=== PATIENT | female | born 1945 | race Caucasian/White ===

== ENCOUNTER → 2017-05-28 11:18 | Outpatient (CLI) | payer MEDICARE, SELFPAY ==
--- NOTE | 2017-05-28 11:53 | XR_ITS ---
XR knee LT 3V COMPARISON: None HISTORY: Suspected patellar subluxation TECHNIQUE: AP lateral and oblique views FINDINGS: There is mild joint space narrowing medially. There is spurring of the tibial spines. There is marked narrowing of the patellofemoral space. There are tubular serpiginous opacities in the soft tissues of the lower thigh and upper leg most likely resenting very prominent venous varicosities and suggest clinical correlation. There is no obvious effusion. IMPRESSION: Moderate degenerative change of the knee, probable diffuse venous varicosities
== END ==
PROVIDERS: PCP Internal Medicine Adolescent Medicine; Visit Provider Internal Medicine Adolescent Medicine
DX: S83.012A Lateral subluxation of left patella, initial encounter (principal)
CPT/HCPCS: 73562

== ENCOUNTER → 2017-06-10 13:00 | Outpatient (CLI) | payer MEDICARE, SELFPAY ==
--- NOTE | 2017-06-10 13:03 | XR_ITS ---
XR DEXA axial skeleton HISTORY: ITS.REASON: POST MENOPAUSAL ORDERING PHYSICIAN: Terell Haynes MD PATIENT AGE: 71 years COMPARISON: 05/28/2015 FINDINGS: The BMD measured at the left femoral neck is 0.749 g/cm squared with a T score of -2.1 . This is considered Osteopenic according to the World Health Organization criteria. Fracture risk is moderate. Treatment is advised. L1 L4 density has a T score of -1.2. The L-spine density has increased by 7% and the mean density of the hips as decreased by 2% compared to the previous exam. IMPRESSION: Osteopenia with moderate fracture risk. Recommend follow-up May 2019
== END ==
PROVIDERS: PCP Internal Medicine Adolescent Medicine; Visit Provider Internal Medicine Adolescent Medicine
DX: Z13.820 Encounter for screening for osteoporosis (principal); Z78.0 Asymptomatic menopausal state
CPT/HCPCS: 77080

== ENCOUNTER → 2018-07-05 09:56 | Outpatient (CLI) | payer MEDICARE, SELFPAY ==
--- NOTE | 2018-07-05 09:59 | MM_ITS ---
MM Dig SC mamm unilat LT CAD CAD Screening INDICATION: Screening for breast cancer ORDERING PHYSICIAN: Terell Haynes MD PATIENT AGE: 72 years COMPARISON: 07/05/2018, 02/11/2016, 02/05/2015 TECHNIQUE: Standard CC and MLO images were obtained. R2 CAD reviewed. FINDINGS: There is average fibroglandular tissue. There has been a prior right mastectomy. Biopsy clips are present in the periareolar region superiorly and in the deep central portion of the left breast at 6:00. Asymmetric areas of fibroglandular tissue present in the retroareolar region similar to the previous exams. No malignant appearing mass or malignant microcalcification is evident. IMPRESSION: Benign findings, no evidence of malignancy. Prior right mastectomy. BI-RADS Category: 2 Benign Finding(s) RECOMMENDED FOLLOW-UP: 1YR - 1 YEAR FOLLOW-UP (A letter has been sent to the patient regarding results of the study.)
== END ==
PROVIDERS: PCP Internal Medicine Adolescent Medicine; Visit Provider Internal Medicine Adolescent Medicine
DX: Z12.31 Encounter for screening mammogram for malignant neoplasm of breast (principal)
CPT/HCPCS: 77067

== ENCOUNTER → 2019-01-06 14:08 | Outpatient (CLI) | payer SELFPAY ==
--- NOTE | 2019-01-06 14:32 | CT_ITS ---
PROCEDURE: CT HEART W CALCIUM SCORE CLINICAL HISTORY: SCREENING COMPARISON: No exams were available for comparison TECHNIQUE: Axial images obtained with sagittal and coronal reformats. All CT scans at the facility use one or more dose reduction, viz: automated exposure control, ma/kV adjustment per patient size (including targeted exams where dose is matched to indication, i.e. head), or iterative reconstruction technique. FINDINGS: The coronary artery calcium score is 0. No identifiable atherosclerotic plaque with very low cardiovascular disease risk. Incidental findings include some minimal calcification along the inferior aspect of the atrioventricular junction on the left. Multiple hypodense liver lesions are present largest in the left hepatic lobe at 3.7 cm consistent with hepatic cyst IMPRESSION: No identifiable calcified atherosclerotic plaque with very low cardiovascular disease risk Hepatic cysts Nonspecific calcification along the posterior and inferior aspect of the left ventricle at the atrioventricular groove Dictated by: Ayden Becerril MD 01/06/2019 16:35 Electronically signed by Ayden Becerril MD in [place] 01/06/2019 16:35
== END ==
PROVIDERS: PCP Internal Medicine Adolescent Medicine; Visit Provider Internal Medicine Cardiovascular Disease
DX: Z13.6 Encounter for screening for cardiovascular disorders (principal)
CPT/HCPCS: 75571

== ENCOUNTER → 2019-04-12 13:09 | Outpatient (CLI) | payer MEDICARE, SELFPAY ==
--- NOTE | 2019-04-12 13:16 | XR_ITS ---
PROCEDURE: XR FEMUR RT 2V CLINICAL INDICATION: RT HIP PAIN,RT THIGH PAIN COMPARISON: No exams were available for comparison FINDINGS: No fracture or dislocation. No lytic or blastic change. There is normal mineralization. The joint spaces are well-preserved. There is marginal spurring off of the lateral femoral condyle. Otherwise, no significant degenerative/arthritic changes. No erosive changes evident. Other findings:None. IMPRESSION: No acute findings. Mild lateral compartment osteoarthritis. Dictated by: Anuj Kenendy 04/12/2019 14:45 Electronically signed by Anuj Kennedy in [place] 04/12/2019 14:45
--- NOTE | 2019-04-12 13:16 | XR_ITS ---
PROCEDURE: XR HIP RT 2-3V W/PELVIS CLINICAL INDICATION: RT HIP PAIN,RT THIGH PAIN COMPARISON: BONE3 BONE DENSITOMETRY(HIP:LT SPINE from 05/28/2015 FINDINGS: No fracture or dislocation is evident. There is slight degenerative loss of the lateral left hip cartilaginous joint space. There is sclerosis at the symphysis pubis consistent with osteitis pubis greatest on the left. Unremarkable soft tissues. IMPRESSION: No acute findings. Mild degenerative findings. Dictated by: Anuj Kennedy 04/12/2019 14:43 Electronically signed by Anuj Kennedy in [facility] 04/12/2019 14:43
--- NOTE | 2019-04-12 13:16 | XR_ITS ---
PROCEDURE: XR SACROILIAC JOINT BI MIN 3V CLINICAL INDICATION: RT HIP PAIN,RT THIGH PAIN COMPARISON: No exams were available for comparison FINDINGS: There is mild sclerosis of the bilateral sacroiliac joints without ankylosis consistent with mild sacroiliitis. No acute fracture dislocation or destructive lesion is apparent. There is osteitis pubis. IMPRESSION: Mild bilateral sacroiliitis. Dictated by: Anuj Kennedy 04/12/2019 14:47 Electronically signed by Anuj Kennedy in [place] 04/12/2019 14:47
== END ==
PROVIDERS: PCP Internal Medicine Adolescent Medicine; Visit Provider Internal Medicine Adolescent Medicine
DX: M25.551 Pain in right hip (principal); M25.651 Stiffness of right hip, not elsewhere classified
CPT/HCPCS: 72202; 73502; 73552

== ENCOUNTER 2019-11-10 09:41 | Outpatient (RCR) | payer MEDICARE, SELFPAY ==
--- NOTE | 2019-11-10 11:25 | HMH.OTOPEV ---
OT Inpatient Evaluation Rehab OT Outpatient Eval Start: 11/10/19 10:49 Freq: Status: Active Protocol: Document 11/10/19 10:50 KORY (Rec: 11/10/19 11:25 KORY [id number]) Electronically Signed By Sara Sahu OT 11/10/19 10:50 Outpatient Therapy Subjective History Subjective History 74 year old female referred to OP OT services after having consistent pain in the right shoulder since Mar 2019. Patient stated being very active in the garden daily and notices increase pain in R shoulder after gardening in the a.m. Patient verbalize having consistent pain during movement from shoulder to elbow. Patient verbalize to have trigger fingers of middle and ring finger on right hand . Patient stated to recieve cortisone shot in R shoulder back in June 2019 however pain returned 2-3 weeks. 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 Type Sharp Symptoms Relieved By Heat Symptoms Aggravated By Physical Activity Prior Functional Limitations None Current Functional Limitations Reaching,Lifting Symptom Description Constant and Continuous Level of pain today (0-10) 0 Pain scale - at its best (0-10) 0 Pain scale - at its worst (0-10) 10 Shoulder/Elbow Eval Shoulder Objective Measurements Shoulder ROM Right Shoulder Abduction Active Range of 80 Motion (degrees) Shoulder Flexion Active Range of Motion 180 (degrees) Query Text: Shoulder External Rotation Active Range 80 of Motion (degrees) Shoulder Internal Rotation Active Range 60 of Motion (degrees) Shoulder MMT Shoulder Abduction Strength Grade 3+ Fair+ Shoulder Extension Strength Grade 3+ Fair+ Shoulder Flexion Strength Grade 3+ Fair+ Shoulder Horizontal Abduction Strength 3+ Fair+ Grade Shoulder Horizontal Adduction Strength 3+ Fair+ Grade Shoulder External Rotation Strength 3+ Fair+ Grade Shoulder Internal Rotation Strength 3+ Fair+ Grade Shoulder Special Tests impingement sign present shoulder exam right standard Shoulder Drop Arm Test Negative Right Shoulder Empty Can (Supraspinatus) Test Positive Right Shoulder Gisela
== END 2019-11-10 10:37 | disposition home or self-care (01) ==
LOC: OT 09:41
PROVIDERS: PCP Internal Medicine Adolescent Medicine; Visit Provider Internal Medicine Adolescent Medicine
DX: M79.601 Pain in right arm (principal)
CPT/HCPCS: 97014; 97033; 97110; 97165; G0283

== ENCOUNTER → 2020-01-05 09:48 | Outpatient (CLI) | payer MEDICARE, SELFPAY ==
--- NOTE | 2020-01-05 09:52 | MM_ITS ---
PROCEDURE: MM DIG SC MAMM UNILAT LT CAD Digital Breast Tomosynthesis Included CLINICAL INDICATION: SCREENING There has been a previous right mastectomy for malignancy. There has been previous biopsies left breast for benign disease. COMPARISON: MG DMSUL DIG MAMM-SCREEN UNI-LT W/CAD from 02/11/2016 MG DMSUL DIG MAMM-SCREEN UNI-LT W/CAD from 02/12/2017 MG SCUNILT MM Dig SC mamm unilat LT CAD from 07/05/2018 TECHNIQUE: Standard CC and MLO images and 3D Tomosynthesis was obtained. R2 CAD reviewed. FINDINGS: Moderate fibroglandular densities are seen in the central portion and subareolar region. There are 2 biopsy clips noted. There is a mole marker inner quadrant. There is no new or suspicious lesion and no suspicious microcalcifications. There is a stable small node in the axilla. IMPRESSION: Fibrofatty parenchyma with no suspicious lesions seen BI-RAD Category: 2 Benign Finding(s) FOLLOW-UP: 1YR 1 Year Follow-up (A letter has been sent to the patient regarding results of the study.) Dictated by: Dr. Trevor Baker MD 01/09/2020 08:22 Dr. Trevor Baker MD in [place] 01/09/2020 08:22
== END ==
PROVIDERS: PCP Internal Medicine Adolescent Medicine; Visit Provider Internal Medicine Adolescent Medicine
DX: Z12.31 Encounter for screening mammogram for malignant neoplasm of breast (principal)
CPT/HCPCS: 77063; 77067

== ENCOUNTER → 2020-04-29 13:51 | Outpatient (CLI) | payer MEDICARE, SELFPAY ==
--- NOTE | 2020-04-29 | CA_ITS ---
APPROVED REPORT Bilateral Lower Extremity Venous Study for Project Specialist: CK RCS, RVS Indications REDNESS AND PAIN POSTERIOR MEDIAL LOWER THIGH, PREVIOUS HX-DVT, PAINFUL VARICOSITIES AND VEIN STRIPPING Medications Aspirin Findings Left superficial thrombus at area of pain, 5.7cm Hya's cyst in left pop fossa. Negative for DVT of the left lower extremity. Conclusion Left superficial thrombus at area of pain, 5.7cm Hay's cyst in left pop fossa. Negative for DVT of the left lower extremity. Electronically signed by : Ayden Becerril MD 04/29/2020 16:08:05
== END ==
PROVIDERS: PCP Internal Medicine Adolescent Medicine; Visit Provider Internal Medicine Adolescent Medicine
DX: M79.605 Pain in left leg (principal); R60.0 Localized edema
CPT/HCPCS: 93971

== ENCOUNTER 2020-06-25 14:30 | Outpatient (RCR) | payer MEDICARE, SELFPAY ==
--- NOTE | 2020-05-13 13:58 | HMH.PTOPWND ---
Rehab Outpt Wound Evaluation Rehab OP Wound Evaluation Start: 05/13/20 13:45 Freq: Status: Active Protocol: Document 05/13/20 13:45 FREEMAN (Rec: 05/13/20 13:58 PHORJUSTINA [id number]) Electronically Signed By Jaron Renner, PT 05/13/20 13:45 Subjective/History History History Pt is 74 yowf who presents with B LE edema, worse on L LE for many years due to CVI. She has hx of L LE DVT, PE and is currently having increased pain from superficial bloot clot in the L posterior medial thigh. She reports increased edema when sedentary, but she prefers to stay active as much as possible. She reports hx of MARCELA, otherwise no more significant PMH. Subjective Subjective 2/4 tenderness to palpation in B LE gaitor area and 3/4 over the post L thigh clot. 1/10 pain currently, 9/10 pain at worst. Lymphedema Eval Classification of Lymphedema Secondary Lymphedema Yes: CVI Stemmer's sign Stemmer's Sign no Stage of Lymphedema Lymphedema stages Stage II (Pitting edema, increased fibrosis w/ decreased pitting) Skin Changes Dry Skin Yes Redness Yes Discoloration of Skin Yes Other Changes Yes Pain Scale Pain Scale (0-10) 1 Affected Extremities Areas Affected by Lymphedema/Edema Right Lower Extremity,Left Lower Extremity Manual Lymphatic Drainage Treatment Area MLD Treatment Area Right Lower Extremity,Left Lower Extremity Wound Problems/Impairments Impairments Problems/Impairmments Palpation Tenderness,Impaired Recreational Activities, Increased Edema,Lymphedema Present,Subjective C/O Pain, Impaired Self Care/Self Management Prognosis Rehab Potential Good Clinical Impression Consistent with Diagnosis Yes Short Term Goals Number of Weeks 4 Decreased Palpation Tenderness Yes: 1/4 Increase Ability to Walk Yes Decrease Edema Yes Patient to Understand Lymphedema Yes Treatment and Exercises Respite Care Provider Goals Number of Weeks
== END 2020-06-25 14:35 | disposition home or self-care (01) ==
LOC: PT 14:30
PROVIDERS: PCP Internal Medicine Adolescent Medicine; Visit Provider Internal Medicine Adolescent Medicine
DX: R60.0 Localized edema (principal); M79.605 Pain in left leg
CPT/HCPCS: 97140; 97162; 97760

== ENCOUNTER → 2020-10-02 08:37 | Outpatient (CLI) | payer MEDICARE, SELFPAY ==
[2020-10-02 09:17] LABS: Basophils # 0.1 K/mm3 (0-0.2); Basophils % 0.9 % (0.1-2.0); Eosinophils # 0.2 K/mm3 (0.0-0.4); Eosinophils % 4.3 % (0.1-12.0); Hematocrit 44.6 % (37.0-47.0); Hemoglobin 14.8 g/dL (12.2-16.2); Lymphocytes # 1.7 K/mm3 (0.7-4.5); Lymphocytes % 32.6 % (10-50); Mean Corpuscular HGB Conc 33.2 g/dL (31.8-35.4); Mean Corpuscular Hemoglobin 32.5 pg (27.0-31.2); Mean Corpuscular Volume 97.8 fl (81-99); Monocytes # 0.3 K/mm3 (0.1-1.0); Monocytes % 5.5 % (1.7-9.3); Neutrophils # 2.9 K/mm3 (1.8-7.8); Neutrophils % 56.7 % (37.0-80.0); Platelet Count 240 K/mm3 (142-424); Red Blood Count 4.56 M/mm3 (4.20-5.40); Red Cell Distribution Width 13.6 % (11.5-17.5); White Blood Count 5.1 K/mm3 (4.8-10.8)
[2020-10-02 09:35] LABS: Alanine Aminotransferase 14 U/L (12-78); Albumin Level 4.6 g/dl (3.5-5.0); Albumin/Globulin Ratio 1.8 (1.1-1.8); Alkaline Phosphatase 64 U/L (38-126); Anion Gap 12.6 mEq/L (5-15); Aspartate Amino Transferase 23 U/L (14-36); Bilirubin,Total 0.9 mg/dl (0.2-1.3); Blood Urea Nitrogen 10 mg/dl (7-17); Calcium 9.1 mg/dl (8.4-10.2); Carbon Dioxide 28 mmol/L (22.0-30.0); Chloride 102 mmol/L (98-107); Chol/HDL Ratio 2.4 (1-3.5); Cholesterol 214 mg/dl (140-200); Estimated Glomerular Filt Rate 82 ml/min (>60); GFR (African American) 99 ML/MIN (>60); Globulin 2.5 g/dL (1.3-3.2); Glucose 91 mg/dl (74-100); HDL Cholesterol 90 mg/dl (40-60); Potassium 4.6 mmoL/L (3.5-5.1); Sodium 138 mmol/L (136-145); Total Protein,Serum 7.1 g/dl (6.3-8.2); Triglycerides 52 mg/dl (30-150); VLDL Cholesterol 10 mg/dL (0-40)
[2020-10-02 09:46] LABS: Direct LDL Cholesterol 103.48 mg/dL (100-129)
[2020-10-02 09:53] LABS: 25-OH Vitamin D, Total 29.4 ng/mL (30-100)
[2020-10-02 10:24] LABS: Vitamin B12 582 pg/mL (239-931)
== END ==
PROVIDERS: Visit Provider Internal Medicine Adolescent Medicine
DX: I89.0 Lymphedema, not elsewhere classified (principal); E78.5 Hyperlipidemia, unspecified; E55.9 Vitamin D deficiency, unspecified; D75.89 Other specified diseases of blood and blood-forming organs
CPT/HCPCS: 36415; 80053; 80061; 82306; 82607; 85025

== ENCOUNTER → 2021-01-09 09:21 | Outpatient (CLI) | payer MEDICARE, SELFPAY ==
--- NOTE | 2021-01-09 09:24 | MM_ITS ---
PROCEDURE: MM DIG SC MAMM UNILAT LT CAD Digital Breast Tomosynthesis Included CLINICAL INDICATION: SCREENING lt , h/o rt breast cancer with masectomy COMPARISON: MG DMSUL DIG MAMM-SCREEN UNI-LT W/CAD from 02/12/2017 MG SCUNILT MM Dig SC mamm unilat LT CAD from 07/05/2018 MG MM DIG SC MAMM UNILAT LT CAD from 01/05/2020 TECHNIQUE: Standard CC and MLO images and 3D Tomosynthesis was obtained. R2 CAD reviewed. FINDINGS: Status post right mastectomy. There are scattered areas of fibroglandular density Two biopsy clips are present as before. Benign-appearing calcifications. No malignant appearing mass or malignant-appearing microcalcification. IMPRESSION: Benign findings. BI-RAD Category: 2 Benign Finding FOLLOW-UP: 1 YR 1 Year Follow-up (A letter has been sent to the patient regarding results of the study.) Dictated by: Ayden Becerril MD 01/10/2021 17:38 Ayden Becerril MD in [place] 01/10/2021 17:38
--- NOTE | 2021-01-09 09:24 | XR_ITS ---
PROCEDURE: XR DEXA AXIAL SKELETON CLINICAL HISTORY: OSTEOPENIA COMPARISON: CR DEXAAX XR DEXA axial skeleton from 06/10/2017 FINDINGS: The right hip BMD is 0.61 with a T-score of -2.1. The left hip BMD is 0.647 with a T-score of -1.8. The lumbar spine BMD is 0.874 with a T-score of -1.6. IMPRESSION: This patient is considered osteopenic according to the World Health Organization criteria. Bone density is between 10 and 25 percent below young normal. Fracture risk is moderate. Treatment is advised. Based on these results a follow-up exam is recommended in 2 year. Dictated by: Ayden Becerril MD 01/09/2021 14:12 Ayden Becerril MD in [place] 01/09/2021 14:12
== END ==
PROVIDERS: PCP Internal Medicine Adolescent Medicine; Visit Provider Internal Medicine Adolescent Medicine
DX: Z12.31 Encounter for screening mammogram for malignant neoplasm of breast (principal); M85.89 Other specified disorders of bone density and structure, multiple sites; Z85.3 Personal history of malignant neoplasm of breast
CPT/HCPCS: 77063; 77067; 77080

== ENCOUNTER → 2021-12-03 08:47 | Outpatient (CLI) | payer MEDICARE, SELFPAY ==
--- NOTE | 2021-12-03 08:58 | XR_ITS ---
FINAL REPORT CLINICAL HISTORY: knee pain COMPARISON: May 28, 2017 FINDINGS: LEFT KNEE Three views of the left knee were obtained. There is no acute fracture or dislocation. Visualized joint spaces are normally aligned. There are moderate degenerative changes which are stable. There is no joint effusion. There are bilateral radiodensities which likely represent venous varicosities. IMPRESSION: Moderate degenerative changes with no acute bony abnormality. Stable from prior exam. Reviewed, Interpreted and Dictated by Kiran Chiang III, MD Transcribed by Paty Lopez Authenticated and [facility]
--- NOTE | 2021-12-03 08:58 | XR_ITS ---
FINAL REPORT CLINICAL HISTORY: shoulder pain FINDINGS: RIGHT SHOULDER 3 views of the right shoulder were obtained. There is no acute fracture or dislocation. There is mild degenerative change of the acromioclavicular joint. There is a small sclerotic focus in the humeral head of uncertain etiology but could represent an enchondroma. There is no soft tissue abnormality. IMPRESSION: Mild degenerative change of the acromioclavicular joint. Small sclerotic focus in the humeral head of uncertain etiology, could represent an enchondroma. Reviewed, Interpreted and Dictated by Kiran Chiang III, MD Transcribed by Paty Lopez Authenticated and . [facility]
--- NOTE | 2021-12-03 08:58 | XR_ITS ---
FINAL REPORT CLINICAL HISTORY: knee pain FINDINGS: RIGHT KNEE Three views of the right knee reveal no evidence of fracture or dislocation. The bony alignment is normal. There are mild and moderate degenerative changes which are greatest at the lateral compartment. There is no evidence of joint effusion. There are presumed venous varicosities laterally. IMPRESSION: Mild and moderate degenerative change with no acute bony abnormality. Reviewed, Interpreted and Dictated by Kiran Chiang III, MD Transcribed by Paty Lopez Authenticated and [facility]
== END ==
PROVIDERS: PCP Internal Medicine Adolescent Medicine; Visit Provider Orthopaedic Surgery
DX: M25.561 Pain in right knee; M25.562 Pain in left knee; M25.511 Pain in right shoulder
CPT/HCPCS: 73030; 73562

== ENCOUNTER 2022-01-21 11:00 | Outpatient (RCR) | payer MEDICARE, SELFPAY ==
--- NOTE | 2021-12-30 11:45 | HMH.PTOPEV ---
PT Outpatient Evaluation Rehab PT Outpatient Evaluation Start: 12/30/21 11:06 Freq: Status: Active Protocol: Document 12/30/21 11:25 KAITLIN (Rec: 12/30/21 11:45 KAITLIN [id number]) E-signed By Tray Chin, PT Outpatient Therapy Subjective History Subjective History Pt reports h/o chronic bilateral knee pain and right shoulder pain for 12-18 months . Pt reports right shoulder pain 'really gives me trouble when I reach back', and reports bilateral knee L<R with stairs and squatting. Pt w/recent xrays of aforementioned areas, right shoulder showing AC jt OA, right knee mild-mod OA, and left knee mod. OA. Pt reports recent right shoulder cortizone injection provided ' no relief'. Chief Complaint Pain,Stiff,Gives out/Unstable, Weakness Symptom Type Ache,Sharp,Dull,Stabbing Symptoms Relieved By Rest/Positioning,Heat,Ice,OTC Meds Symptoms Aggravated By Physical Activity Prior Functional Limitations Reaching,Lifting,Housework, Squatting,Stairs Current Functional Limitations Reaching,Lifting,Housework, Squatting,Stairs Symptom Description Constant but Variable Level of pain today (0-10) 6 Pain scale - at its best (0-10) 3 Pain scale - at its worst (0-10) 10 Shoulder/Elbow Eval Shoulder Objective Measurements Palpation Tenderness tenderness over the bicipital tendon right shoulder exam standard Shoulder Palpation Findings Tenderness Shoulder Palpation Overall Comment 3/4 AC JT, SUPRA- INSERTION, BICEP TENDON Shoulder ROM Right Shoulder Abduction Active Range of 0-105 Motion (degrees) Shoulder Flexion Active Range of Motion 0-140 (degrees) Query Text: Shoulder External Rotation Passive Range 0-80 of Motion (degrees) Shoulder Extension Active Range of 0-10 Motion (degrees) Shoulder MMT Middle Trapezius Strength Grade 3- Fair- Shoulder Abduction Strength Grade 4- Good- Shoulder Flexion Strength Grade 4 Good Shoulder External Rotation Strength 4- Good- Grade Shoulder Internal Rotation Strength 4 Good Grade Shoulder Special Tests Shoulder Drop Ar
== END 2022-01-21 11:05 | disposition home or self-care (01) ==
LOC: PT 11:00
PROVIDERS: PCP Internal Medicine Adolescent Medicine; Visit Provider Orthopaedic Surgery
DX: M25.562 Pain in left knee (principal); M25.561 Pain in right knee; M25.511 Pain in right shoulder
CPT/HCPCS: 97010; 97014; 97110; 97163; G0283

== ENCOUNTER → 2022-01-26 12:39 | Outpatient (CLI) | payer MEDICARE, SELFPAY ==
--- NOTE | 2022-01-26 12:57 | CA_ITS ---
FINAL REPORT TECHNIQUE: Ultrasound images of the deep venous system were obtained from the left groin to the calf veins. CLINICAL HISTORY: PAIN PROX LATERAL CALF IN AREA OF VARICOSE VEINS,HX DVT FINDINGS: The deep venous system is normally compressible. Normal flow is identified. There is superficial thrombophlebitis in the area of the left lateral proximal calf. There is a 5.8 cm cystic lesion in the popliteal fossa consistent with Hay's cyst. IMPRESSION: No evidence of left lower extremity DVT. Superficial thrombophlebitis. Reviewed, Interpreted and Dictated by Orlin Ham MD Transcribed by Bernie Fish Authenticated and [facility]
== END ==
PROVIDERS: PCP Internal Medicine Adolescent Medicine; Visit Provider Internal Medicine Adolescent Medicine
DX: M79.605 Pain in left leg (principal); R60.1 Generalized edema
CPT/HCPCS: 93971

== ENCOUNTER → 2022-05-12 13:29 | Outpatient (CLI) | payer MEDICARE, SELFPAY ==
--- NOTE | 2022-05-12 13:31 | MM_ITS ---
PROCEDURE INFORMATION: Exam: MG Left Screening 3D Mammography Exam date and time: 05/12/2022 1:31 PM Age: 76 years old Clinical indication: Screening mammogram. Personal history of right breast cancer; Mastectomy TECHNIQUE: Imaging protocol: Left Screening tomosynthesis and 2D mammography including computer-aided detection (CAD) when performed. COMPARISON: 1. MG MM DIG SC MAMM UNILAT LT CAD 01/09/2021 9:45 AM 2. MG MM DIG SC MAMM UNILAT LT CAD 01/05/2020 10:04 AM 3. MG SCUNILT MM Dig SC mamm unilat LT CAD 07/05/2018 10:10 AM 4. MG DMSUL DIG MAMM-SCREEN UNI-LT W/CAD 02/12/2017 9:30 AM FINDINGS: MAMMOGRAPHY: Breast composition: The breast is heterogeneously dense, which may obscure small masses. Mass: None. Architectural distortion: No new or suspicious architectural distortion. Calcifications: No new or suspicious calcifications are present Asymmetric density: No new or suspicious asymmetric density is present Skin thickening: None. Axillary adenopathy: None. IMPRESSION: No mammographic evidence of malignancy. Recommend annual screening mammography unless otherwise clinically indicated. ASSESSMENT: BI-RADS category 1: Negative
== END ==
LOC: RAD 13:29
PROVIDERS: PCP Internal Medicine Adolescent Medicine; Visit Provider Internal Medicine Adolescent Medicine
DX: Z12.31 Encounter for screening mammogram for malignant neoplasm of breast (principal)
CPT/HCPCS: 77063; 77067

== ENCOUNTER → 2022-09-07 13:13 | Outpatient (CLI) | payer MEDICARE, SELFPAY | PROVIDERS: PCP Internal Medicine Adolescent Medicine; Visit Provider Internal Medicine Adolescent Medicine | DX: R01.1 Cardiac murmur, unspecified (principal); I35.8 Other nonrheumatic aortic valve disorders | CPT/HCPCS: 93306 ==

== ENCOUNTER → 2023-01-25 13:41 | Outpatient (CLI) | payer MEDICARE, SELFPAY ==
--- NOTE | 2023-01-25 13:51 | XR_ITS ---
FINAL REPORT CLINICAL HISTORY: B/L foot pain COMPARISON: None FINDINGS: AP, oblique and lateral views of the left foot were obtained. There is no prior exam for comparison. There is no acute fracture or dislocation. Osteopenia is present. There is mild multijoint degenerative change present, particularly at the first MTP joint. Soft tissues are normal. IMPRESSION: No acute osseous abnormality of the left foot. Mild multijoint degenerative change, particularly the first MTP joint. Reviewed, Interpreted and Dictated by Aida Gibson MD Transcribed by Elenita Sherman Authenticated and [facility]
--- NOTE | 2023-01-25 13:51 | XR_ITS ---
FINAL REPORT CLINICAL HISTORY: B/L foot pain COMPARISON: None FINDINGS: AP, oblique and lateral views of the right foot were obtained. There is no prior exam for comparison. There is no acute fracture or dislocation. Osteopenia is present, with mild multijoint degenerative change particularly in the midfoot. Soft tissues are normal. IMPRESSION: No acute osseous abnormality of the right foot. Osteopenia with mild multijoint degenerative change, particularly in the midfoot. Reviewed, Interpreted and Dictated by Aida Gibson MD Transcribed by Elenita Sherman Authenticated and [facility]
== END ==
PROVIDERS: PCP Internal Medicine Adolescent Medicine; Visit Provider Podiatrist
DX: M79.671 Pain in right foot (principal); M79.672 Pain in left foot
CPT/HCPCS: 73630

== ENCOUNTER 2023-05-20 13:12 | Outpatient (CLI) | payer MEDICARE, SELFPAY ==
--- NOTE | 2023-05-20 13:16 | MM_ITS ---
PROCEDURE INFORMATION: Exam: MG Left Screening 3D Mammography Exam date and time: 05/20/2023 1:08 PM Age: 77 years old Clinical indication: Screening examination; h/o RT breast cancer treated with mastectomy TECHNIQUE: Imaging protocol: Left Screening tomosynthesis and 2D mammography including computer-aided detection (CAD) when performed. COMPARISON: 1. MG MM DIG SC MAMM UNILAT LT CAD 05/12/2022 1:31 PM 2. MG MM DIG SC MAMM UNILAT LT CAD 01/09/2021 9:45 AM FINDINGS: MAMMOGRAPHY: Breast composition: There are scattered areas of fibroglandular density. Mass: None. Architectural distortion: None. Calcifications: No suspicious calcifications. Asymmetric density: None. Skin thickening: None. Axillary adenopathy: None. Other findings: The patient is status post right mastectomy IMPRESSION: 1. No mammographic evidence of malignancy. Annual screening is recommended unless otherwise clinically indicated. 2. In women diagnosed with breast cancer before age 50 or with personal histories of breast cancer and dense breasts, the [employer] recommends annual supplemental MRI in addition to yearly mammography. Alternative supplemental studies may include breast sonography or contrast enhanced mammography. Please be aware that your insurance company will determine whether they will cover the cost of such screening, despite the recommendation of your doctors and the [employer]. It is your responsibility to determine your insurance benefits. ASSESSMENT: BI-RADS Category 1: Negative
== END 2023-05-20 23:59 ==
LOC: RAD 13:13
PROVIDERS: PCP Internal Medicine Adolescent Medicine; Visit Provider Internal Medicine Adolescent Medicine
DX: Z12.31 Encounter for screening mammogram for malignant neoplasm of breast (principal); Z85.3 Personal history of malignant neoplasm of breast
CPT/HCPCS: 77063; 77067

== ENCOUNTER 2024-11-22 10:36 | Outpatient (RCR) | payer MEDICARE, SELFPAY | END 2024-11-22 23:59 | disposition home or self-care (01) | LOC: OT 10:36 | PROVIDERS: PCP Internal Medicine Adolescent Medicine; Visit Provider Internal Medicine Adolescent Medicine | DX: M25.511 Pain in right shoulder (principal) | CPT/HCPCS: 97165 ==

== ENCOUNTER 2024-11-27 13:45 | Outpatient (CLI) | payer MEDICARE, SELFPAY ==
--- OUTSIDE RECORDS SUMMARY | 2024-11-01 05:45 | XMS_ITS ---
Author Organization 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 Name Role Phone Terell Haynes Primary Care Provider Allergies Allergen (clinical drug ingredient) Drug/Non Drug Allergy documented on EMR Reaction Allergy Type Onset Date Status MOBIC (uncoded) stomach upset Allergy Active WASPS (uncoded) swelling Allergy Acti ve lidocaine Lidocaine itching Drug Allergy Active Ethyl Chloride itching Drug Allergy Ac tive Aleve stomach upset Drug Allergy Act salbador naproxen Naprosyn stomach upset Drug Allergy Act salbador codeine Codeine lip swelling Drug Allergy Acti ve REASON FOR VISIT 3 Month follow up, [employer] PAF due Medications Medication SIG (Take, Route, Frequency, Duration) Notes Start Date End Date Status Vitamin D3 125 MCG 1 CAP(S) ORALLY twic e a day 1000 IU Active Tylenol Extra Strength 500 MG 2 tab(s) orally every 6 hours prn Active Folic Acid 800 MCG 1 tab(s) orally once a day; Duration: 30 day(s) Active HYDROcodone-Acetaminophen 5-325 MG 1 tab(s) orally every 6 hours and at bedtie if needed; Duration: 30 days 10/12/2024 Active Theratears - 1 GTT IN EACH EYE ON CE A DAY AND PRN Active Vitamin C 500 MG 1 tab(s) orally once a day; Duration: 30 day(s) Active Biotin 1000 MCG 1 tab(s) orally once a day Active B-12 1000 MCG 1 tab(s) orally once a day Active Immunizations Vaccine Route Administration Date Status Comme nts Fluzone High Dose IM Intramuscular 11/01/2024 Administered Problems Problem Type SNOMED Code ICD Code Onset Dates Problem Status W/U Status Risk Notes Problem Osteopenia (387348997) Osteopenia of multiple sites (M85.89) Active confirmed Problem Basal cell carcinoma (BCC) of skin of left upper extremity including shoulder (C44.619) Active confirmed Problem History of left knee replacement ([id number] 4) History of left knee replacement (Z96.652) Active confirmed Vital Signs Temperature 97.7 degrees Fahrenheit 11/02/19 25 Blood pressure systolic 134 mm Hg 11/02/19 25 Blood pressure diastolic 88 mm Hg 025 Heart Rate 80 /min 11/01/2024 Height 5 ft 6.75 in in 11/01/2024 Weight 187 lbs 11/01/2024 BMI 29.5 kg/m2 11/01/2024 Encounters Encounter Location Date Provider Diagnosis [facility] [address] [facility] [address] [place] [address] 11/01/2024 Terell Haynes Osteopenia of multip le sites M85.89 ; Basal cell carcinoma (BCC) of skin of left upper extremity including shoulder C44.619 ; Venous stasis I87.8 ; Encounter for immunization Z23 ; Immunization(s) administered Z23 ; History of left knee replacement Z96.652 and Routine medical exam Z00.00 Assessments Encounter Date Diagnosis (ICD Code) Assessment Notes Treatment Notes Treatment Clinical Notes Section Notes 11/01/2024 Osteopenia of multiple sites (ICD-10 - M85.89) Did have osteopenia at last DEXA in 2020 with lowest T-score of -2.1 in R hip. Will plan for repeat today. Continue taking Vit-d and Calcium. WIll discuss result at next visit. 11/01/2024 Basal cell carcinoma (BCC) of skin of left upper extremity including shoulder (ICD-10 - C44.619) Continue following with dermatology 11/01/2024 Venous stasis (ICD-10 - I87.8) Bilateral Venous stasis, however, L leg edema > R. L leg is red and has pitting edema. US of leg leg in september was negative for DVT, but did show fluid collection behind L knee ( Bakers cyst vs hematoma). Did encourage continued activity, leg elevation, and continued SCD use. Did offer occasional Lasix use for leg swelling but she denied. Can repeat US of LLE at next visit in 3 months to see if fluid collection is changed if it still bothers the patient. 11/01/2024 Encounter for immunization (ICD-10 - Z23) Will give quadrivalent flu shot today 11/01/2024 Immunization(s) administered (ICD-10 - Z23) 11/01/2024 History of left knee replacement (ICD-10 - Z96.652) Had L knee replacment on 08/28/24. She has taken low dose ASA since then. Told her she can stop taking ASA since it has been 2 months post surgery. 11/01/2024 Routine medical exam (ICD-10 - Z00.00) In regards to [employer] practitioner assessment form, patient is doing well. Up-to-date with vaccines, up-to-date with cancer screening. DEXA ordered. No falls. is healthcare surrogate. / word recall at Medicare annual wellness visit. Not diabetic. Plan Of Treatment Treatment Notes Assessment Notes Osteopenia of multiple sites Did have os teopenia at last DEXA in 2020 with lowest T-score of -2.1 in R hip. Will plan for repeat today. Continue taking Vit-d and Calcium. WIll discuss result at next visit. Basal cell carcinoma (BCC) o f skin of left upper extremity including shoulder Continue following with dermatology Venous stasis Bilateral Venous sta sis, however, L leg edema > R. L leg is red and has pitting edema. US of leg leg in september was negative for DVT, but did show fluid collection behind L knee ( Bakers cyst vs hematoma). Did encourage continued activity, leg elevation, and continued SCD use. Did offer occasional Lasix use for leg swelling but she denied. Can repeat US of LLE at next visit in 3 months to see if fluid collection is changed if it still bothers the patient. Encounter for immunization Will give anuradha drivalent flu shot today History of left knee replacement Had L k nee replacment on 08/28/24. She has taken low dose ASA since then. Told her she can stop taking ASA since it has been 2 months post surgery. Routine medical exam In regards to [employer] practitioner assessment form, patient is doing well. Up-to-date with vaccines, up-to-date with cancer screening. DEXA ordered. No falls. is healthcare surrogate. 05/22 word recall at Medicare annual wellness visit. Not diabetic. Pending Test Test Name Order Date DEXA Hip and Spine - Diagnostic 11/02/19 Next Appt Details Follow Up: prn, Reason: Provider Name:Terell Haynes, 01/31/2025 10:30:00 AM, [address], [address], [place], [address], Progress Notes * Allyssa ROBERTSDOB: [birth year] (79 yo F)Acc No.[id number]:11/01/2024 Progress Notes Patient: Allyssa GUALLPA Provider: Sofiya Haynes MD :1945 A ge:79 Y S ex:Female Date:11/01/2024 Address:[address] [place], [place] [id number] Subjective: * Chief Complaints: * 1 . 3 Month follow up. 2. Nicolasa HAMM due. * HPI: g en: F/u of med probs.. due for nicolasa hamm Went to see embroidery operator, they removed a basal cell carcinoma. She is not sure if they got clean margins, but they want go back in 11/21 and go deeper . Recently had a knee replacement on August 28. Wants to know if she can come off baby aspirin. Wants to know if she can come off. Found Bakers cyst after the knee surgery. Cannot wear compression socks. Has pain all over the Left leg, no pain in popliteal fossa. * Medical History: o varian mass, s/p MARCELA/BSO 05/27, DVT 1998 , 2007, PE 1976, Breast CA , s/p R mastectomy, Superficial thrombophlebitis, Miscarriage in 7th month, Tubal , Blood transfusion, Frac left distal fibula, Arthritis - on Opiate tx... appropriate UDS 01/08, Normal colonoscopy summer 2014, B12 vitamin deficiency, osteopenia on DEXA scanning in April 2015 - unchanged in 05/2017 - slightly worse 01/09 - treatment recommended, Plantar Fascaiitis, Normal mammogram 07/08 and 12/2019 and 12/2020 and 04/2022 and 06/12, CT cardiac screening with no visible calcifications 01/07, DVT, Hyperlipemia, idiopathic familial, Basal cell carcinoma. * Surgical History: h ysterectomy , right mastectomy , 3 abd hernia repair , tubal ligation , breast reconstruction , DVT , tubal preganacy-tube/ovary removed , normal colonoscopy summer 2014 , cortisone injections in bilateral hands 07/2016, left cataract surgery 05/19/2018, right cataract surgery 01/2020, lt knee total replacement 08/2024. * Hospitalization/Major Diagno stic Procedure: a ll related to above . * Family History: F ather: . M other: , osteoporosis, hypertension. P aternal Grand Father: . P aternal Grand Mother: . M aternal Grand Father: . M aternal Grand Mother: . S iblings: alive, 3 brothers - CA, cancer, MVAoldest brother-blind. C sloan: alive, oldest daughter- RA. 6 brother(s) . 2 daughter(s) . . * Social History: S moking: no A re you a:: nonsmoker. R ecreational drug use: no. Exercise: yes, walking, gardening, yard work. Home smoke detector use: yes. Caffeine: yes, frequency:1-2 cups coffee. Living Will: Yes. Alcohol: socially, Wine once a year. Sexually active: no. Travel outside [place]: no. Occupation: retired. * Medications: T aking Biotin 1000 MCG Tablet 1 tab(s) orally once a day , Taking Vitamin C 500 MG Tablet 1 tab(s) orally once a day , Taking B-12 1000 MCG Tablet 1 tab(s) orally once a day , Taking Vitamin D3 125 MCG CAPSULE 1 CAP(S) ORALLY twice a day , Notes to Pharmacist: 1000 IU, Taking Folic Acid 800 MCG Tablet 1 tab(s) orally once a day , Taking Tylenol Extra Strength 500 MG Tablet 2 tab(s) orally every 6 hours prn , Taking Theratears - SOLUTION 1 GTT IN EACH EYE ONCE A DAY AND PRN , Taking HYDROcodone-Acetaminophen 5-325 MG Tablet 1 tab(s) orally every 6 hours and at bedtie if needed , Medication List reviewed and reconciled with the patient * Allergies: C odeine: lip swelling, Codeine: lip swelling, Naprosyn: stomach upset, Naprosyn: stomach upset, Aleve: stomach upset, Aleve: stomach upset, WASPS: swelling, WASPS: swelling, Ethyl Chloride: itching, Ethyl Chloride: itching, MOBIC: stomach upset, MOBIC: stomach upset, Lidocaine: itching, Lidocaine: itching. Objective: * Vitals: N urse: be, Pain: 2, Temp: 97.7, RR: 16, HR: 80, BP: 134/88, Ht: 5 ft 6.75 in, Wt: 187, BMI:29.5. * Examination: G eneral Examination: General P leasant and Cooperative, NAD on RA,. Heart: R egular Rate and Rhythm, no murmur, rubs or gallops. Lungs: L CTAB, No wheezes, crackles or rhonchi, Good air movement,. Abdomen: S oft, NTND, BSNA, No organomegaly or peritoneal signs.. Extremities: B ilateral Venous Stasis, with increased Edema in LLE. 1+ pitting edema in LLE to mid maldonado. Venous stasis dermatitis in LLE.. ? Assessment: * Assessment: 1. O steopenia of multiple sites - M85.89 (Primary) 2 . B dick cell carcinoma (BCC) of skin of left upper extremity including shoulder - C44.619 3 . V enous stasis - I87.8 4 . E ncounter for immunization - Z23 5 . I mmunization(s) administered - Z23 6 . H istory of left knee replacement - Z96.652 7 . R outine medical exam - Z00.00 Plan: * Treatment: * Notes: Did have osteopenia at last DEXA in 2020 with lowest T-score of -2.1 in R hip. Will plan forrepeat today. Continue taking Vit-d and Calcium. WIll discuss result at next visit. ??2.?Basal cell carcinoma (BCC) of skin of left upper extremity including shoulder? Notes: Continue following with dermatology??3.?Venous stasis? Notes: Bilateral Venous stasis, however, L leg edema > R. L leg is red and has pitting edema. USof leg leg in september was negative for DVT, but did show fluid collection behind L knee ( Bakers cyst vs hematoma). Did encourage continued activity, leg elevation, and continued SCD use. Did offer occasional Lasix use for leg swelling but she denied. Can repeat US of LLE at next visit in 3 months to see if fluid collection is changed if it still bothers the patient. ?? 4.?Encounter for immunization? Notes: Will give quadrivalent flu shot today??5.?History of left knee replacement? Notes: Had L knee replacment on 08/28/24. She has taken low dose ASA since then. Told her she can stop taking ASA since it has been 2 months post surgery. ?? 6.?Routine medical exam? Notes: In regards to [employer] practitioner assessment form, patient is doing well. Up-to-date with vaccines, up-to-date with cancer screening. DEXA ordered. No falls. is healthcare surrogate. 05/22 word recall at Medicare annual wellness visit. Not diabetic.?? * Immunizations: Fluzone High Dose : 0.5 mL (Route: Intramuscular) given by URSULA García on Left Deltoid (Immunization(s) administered) * Procedure Codes: 9 0662 Influenza High Dose Vaccine >65 Years Old, G0008 ADMINISTRATION-FLU VACCINE MEDICARE ONLY, 35007 HEALTH RISK [id number] * Follow Up: p rn * * Sign off status: Completed true * Provider: Sofiya Haynes MD Date: 0 11/01/2024 Generated for Austin mensah/Jeniffer/Jodieitting on: 0 11/27/2024 01:46 PM EDT History and Physical Notes * HPI (History of Present Illness) Category Sub-Category Detail Notes Category Not es gen F/u of med probs.. due for nicolasa hamm Went to see embroidery operator, they removed a basal cell carcinoma. She is not sure if they got clean margins, but they want go back in 11/21 and go deeper . Recently had a knee replacement on August 28. Wants to know if she can come off baby aspirin. Wants to know if she can come off. Found Bakers cyst after the knee surgery. Cannot wear compression socks. Has pain all over the Left leg, no pain in popliteal fossa. Examination Category Sub-Category Detail Notes Category Not es General Examination Heart: Regular Rate and Rhythm, no murmur, rubs or gallops Lungs: LCTAB, No wheezes, c rackles or rhonchi, Good air movement, Abdomen: Soft, NTND, BSNA, No organomegaly or peritoneal signs. Extremities: Bilateral Venous Sta sis, with increased Edema in LLE. 1+ pitting edema in LLE to mid maldonado. Venous stasis dermatitis in LLE. General Pleasant and Coopera tive, NAD on RA,
--- OUTSIDE RECORDS SUMMARY | 2024-11-01 11:18 | XMS_ITS ---
Author Organization [facility] Address [address] [facility] [address] [facility] [address] [place] [address] Care Team Providers Care Assembler Piano Name Role Phone OsmanyDaren kaurhen Primary Care Provider REASON FOR VISIT mammogram order Encounters Encounter Location Date Provider Diagnosis [facility] [address] [place] [facility] [address] [facility] [address] [place] [address] 11/01/2024 Terell Haynes Visit for screening mammogram Z12.31 Assessments Encounter Date Diagnosis (ICD Code) Assessment Notes Treatment Notes Treatment Clinical Notes Section Notes 11/01/2024 Visit for screening mammogram (ICD-10 - Z12.31) Plan Of Treatment Pending Test Test Name Order Date Mammogram : Bilateral 11/01/2024 Next Appt Details Provider Name:Terell Haynes, 01/31/2025 10:30:00 AM, [address] [facility] [address] [facility] [address], [place], [address], Progress Notes * ALEJANDRA Allyssa LamDOB: [birth year] (79 yo F)Acc No.[id number]:11/01/2024 Patient: Allyssa GUALLPA :1945 A ge:79 Y S ex:Female Address:[address], [place] [address] Subjective: * Chief Complaints: * M ammogram order * Medical History: * Surgical History: * Hospitalization/Major Diagno stic Procedure: * Medications: Objective: * Vitals: * Physical Examination: Assessment: * Assessment: 1. V isit for screening mammogram - Z12.31 Plan: * Treatment: * Procedure Codes: * true * Date: Generated for Austin mensah/Jeniffer/Suki on: 0 11/27/2024 01:47 PM EDT
--- OUTSIDE RECORDS SUMMARY | 2024-11-02 05:08 | XMS_ITS ---
Author Organization [facility] Address [address] [facility] [address] [facility] [address] [place] [address] Care Team Providers Care Gate Watch Name Role Phone Terell Haynes Primary Care Provider Encounters Encounter Location Date Provider Diagnosis [facility] [address] [facility] [address] [facility] [address] [place] [address] 11/02/2024 Terell Haynes Visit for screening mammogram Z12.31 Assessments Encounter Date Diagnosis (ICD Code) Assessment Notes Treatment Notes Treatment Clinical Notes Section Notes 11/02/2024 Visit for screening mammogram (ICD-10 - Z12.31) Plan Of Treatment Pending Test Test Name Order Date Mammogram : Left breast 11/02/2024 Next Appt Details Provider Name:Terell Sanchez Haynes, 01/31/2025 10:30:00 AM, [address] [facility] [address] [facility], [address], [place], [address], Progress Notes * Allyssa ROBERTSDOB: [birth year] (79 yo F)Acc No.[id number]:11/02/2024 Patient: Allyssa GUALLPA Genaro :1945 A ge:79 Y S ex:Female Address:[address], [place] [address] Subjective: * Chief Complaints: * * Medical History: * Surgical History: * Hospitalization/Major Diagno stic Procedure: * Medications: Objective: * Vitals: * Physical Examination: Assessment: * Assessment: 1. V isit for screening mammogram - Z12.31 Plan: * Treatment: * Procedure Codes: * true * Date: Generated for Austin mensah/Jeniffer/Suki on: 0 11/27/2024 01:46 PM EDT
--- OUTSIDE RECORDS SUMMARY | 2024-11-13 07:56 | XMS_ITS ---
Author Organization [facility] Address [address] [facility] [address] [facility] [address] [place] [address] Care Team Providers Care Center Machine Operator Name Role Phone Terell Haynes Primary Care Provider [phone] REASON FOR VISIT PT and OT Orders Encounters Encounter Location Date Provider Diagnosis [facility] [address] [facility] [address] [place] [address] 11/13/2024 Terell Haynes History of left knee replacement Z96.652 ; Left knee pain M25.562 and Pain in right shoulder M25.511 Assessments Encounter Date Diagnosis (ICD Code) Assessment Notes Treatment Notes Treatment Clinical Notes Section Notes 11/13/2024 History of left knee replacement (ICD-10 - Z96.652) 11/13/2024 Left knee pain (ICD-10 - M25.562) 11/13/2024 Pain in right shoulder (ICD-10 - M25.511) Plan Of Treatment Pending Test Test Name Order Date Occupational Therapy : Eval & Treatment 11/13/2024 Physical Therapy Eval and Treat 11/14/19 Next Appt Details Provider Name:Terell Haynes, 01/31/2025 10:30:00 AM, [address], [address], [place], [address], Progress Notes * ALEJANDRAAllyssa SORTO GenaroDOB: [birth year] (79 yo F)Acc No.[id number]:11/13/2024 Patient: Allyssa GUALLPA :1945 A ge:79 Y S ex:Female Address:[facility] [place] [address] Subjective: * Chief Complaints: * P T and OT Orders * Medical History: * Surgical History: * Hospitalization/Major Diagno stic Procedure: * Medications: Objective: * Vitals: * Physical Examination: Assessment: * Assessment: 1. H istory of left knee replacement - Z96.652 2 . L eft knee pain - M25.562 3 . P ain in right shoulder - M25.511 Plan: * Treatment: 2.?Left knee pain?Imaging: Physical Therapy Eval and Treat* 3.?Pain in right shoulder?Imaging: Occupational Therapy : Eval & Treatment* * Procedure Codes: * true * Date: Generated for Austin mensah/Jeniffer/Suki on: 0 11/27/2024 01:47 PM EDT
--- NOTE | 2024-11-27 13:46 | MM_ITS ---
PROCEDURE INFORMATION: Exam: MG Left Screening 3D Mammography Exam date and time: 11/27/2024 1:51 PM Age: 79 years old Clinical indication: Screening examination; Personal history of right breast cancer; Mastectomy. TECHNIQUE: Imaging protocol: Left Screening tomosynthesis and 2D mammography including computer-aided detection (CAD) when performed. COMPARISON: 1. MG MM DIG SC MAMM UNILAT LT CAD 05/20/2023 1:08 PM 2. MG MM DIG SC MAMM UNILAT LT CAD 05/12/2022 1:31 PM FINDINGS: MAMMOGRAPHY: Breast composition: There are scattered areas of fibroglandular density. Mass: None. Architectural distortion: None. Calcifications: No suspicious calcifications. Asymmetric density: None. Skin thickening: None. Axillary adenopathy: None. IMPRESSION: No mammographic evidence of malignancy. Annual screening is recommended unless otherwise clinically indicated. ASSESSMENT: BI-RADS Category 1: Negative.
--- OUTSIDE RECORDS SUMMARY | 2024-11-27 13:47 | XMS_ITS | Patient Health Record ---
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 Name Role Phone Ivy Terell Primary Care Provider Elvie Mai Unavailable [phone] Migration, Provider Unavailable Unavailable Allergies Allergen (clinical drug ingredient) Drug/Non Drug [...] Codeine lip swelling Drug Allergy Acti ve Results Component Value Reference Range Notes THYROID PANEL WITH TSH (4644 ) Reviewed date:02/04/2024 08:27:52 AM Interpretation: Performing Lab:J[facility]O [employer] [id number] [facility] Vinh Dutta Notes/Report: NON-FASTING; NON-FASTING; NON-FASTING; NON-FASTING; NON-FAST FASTING:YES FASTING: YES T3 UPTAKE 29 22-35 % T4 (THYROXINE), TOTAL 9.4 5.1-11.9 mcg/dL FREE T4 INDEX (T7) 2.7 1.4-3.8 TSH 2.04 0.40-4.50 mIU/L LIPID PANEL, STANDARD (7600) Reviewed date:02/04/2024 08:27:52 AM Interpretation: Performing Lab:J[facility] [employer] [id number] [facility] Hospital[facility]blpFO[address] Vinh Dutta Notes/Report: NON-FASTING; NON-FASTING; NON-FASTING; NON-FASTING; NON-FAST FASTING:YES FASTING: YES CHOLESTEROL, TOTAL 237 <200 mg/dL HDL CHOLESTEROL 82 > OR = 50 mg/dL TRIGLYCERIDES 68 <150 mg/dL LDL-CHOLESTEROL 139 Reference range: <100 Desirable range <100 mg/dL for primary prevention; <70 mg/dL for patients with CHD or diabetic patients with > or = 2 CHD risk factors. LDL-C is now calculated using the Shailesh-Anna calculation, which is a validated novel method providing better accuracy than the Friedewald equation in the estimation of LDL-C. Shailesh SS et al. ELIEZER. 2013;310(20): 8824-1560 (http://Oxxy.Atlas Learning/faq/MRK144) CHOL/HDLC RATIO 2.9 <5.0 (calc) NON HDL CHOLESTEROL 155 <130 mg/dL (calc) For patients with diabetes plus 1 major ASCVD risk factor, treating to a non-HDL-C goal of <100 mg/dL (LDL-C of <70 mg/dL) is considered a therapeutic option. COMPREHENSIVE METABOLIC [facility]Pablo Manriquez ([id number]) Reviewed date:02/04/2024 08:27:52 AM Interpretation: Performing Lab:[facility] [id number] [facility] HospitalRpqjLP[address] Vinh Dutta Notes/Report: NON-FASTING; NON-FASTING; NON-FASTING; NON-FASTING; NON-FAST FASTING:YES FASTING: YES GLUCOSE 87 65-99 mg/dL Fasting reference interval UREA NITROGEN (BUN) 10 7-25 mg/dL CREATININE 0.64 0.60-1.00 mg/dL EGFR 90 > OR = 60 mL/min/1.73m2 BUN/CREATININE RATIO SEE NOTE: 6-22 (calc) Not Reported: BUN and Creatinine are within reference range. SODIUM 140 135-146 mmol/L POTASSIUM 4.4 3.5-5.3 mmol/L CHLORIDE 104 98-110 mmol/L CARBON DIOXIDE 26 20-32 mmol/L CALCIUM 9.7 8.6-10.4 mg/dL PROTEIN, TOTAL 6.9 6.1-8.1 g/dL ALBUMIN 4.3 3.6-5.1 g/dL GLOBULIN 2.6 1.9-3.7 g/dL (calc) ALBUMIN/GLOBULIN RATIO 1.7 1.0-2.5 (calc) BILIRUBIN, TOTAL 0.8 0.2-1.2 mg/dL ALKALINE PHOSPHATASE 63 37-153 U/L AST 15 10-35 U/L ALT 10 6-29 U/L MAGNESIUM (622) Reviewed date:02/04/2024 08:27:52 AM Interpretation: Performing Lab:JULITO, [employer] Mediae13[address], MiniVaxWbhmFR[address] Vinh Dutta Notes/Report: NON-FASTING; NON-FASTING; NON-FASTING; NON-FASTING; NON-FAST FASTING:YES FASTING: YES MAGNESIUM 2.0 1.5-2.5 mg/dL CBC (INCLUDES DIFF/PLT) (639 9) Reviewed date:02/04/2024 08:27:52 AM Interpretation: Performing Lab:[facility] [employer] Mediae13[address] [employer], Youth1 MediaNefqYJ[address] Vinh Dutta Notes/Report: NON-FASTING; NON-FASTING; NON-FASTING; NON-FASTING; NON-FAST FASTING:YES FASTING: YES WHITE BLOOD CELL COUNT 5.3 3.8-10.8 Thousand/ uL RED BLOOD CELL COUNT 4.18 3.80-5.10 Million/uL HEMOGLOBIN 14.2 11.7-15.5 g/dL HEMATOCRIT 43.0 35.0-45.0 % MCV 102.9 80.0-100.0 fL MCH 34.0 27.0-33.0 pg MCHC 33.0 32.0-36.0 g/dL For adults, a slight decrease in the calculated MCHC value (in the range of 30 to 32 g/dL) is most likely not clinically significant; however, it should be interpreted with caution in correlation with other red cell parameters and the patient's clinical condition. RDW 11.8 11.0-15.0 % PLATELET COUNT 238 140-400 Thousand/uL MPV 11.1 7.5-12.5 fL ABSOLUTE NEUTROPHILS [phone] cells/uL ABSOLUTE LYMPHOCYTES 9315 265-0429 cells/uL ABSOLUTE MONOCYTES 488 200-950 cells/uL ABSOLUTE EOSINOPHILS 148 15-500 cells/uL ABSOLUTE BASOPHILS 48 0-200 cells/uL NEUTROPHILS 58.8 LYMPHOCYTES 28.3 MONOCYTES 9.2 EOSINOPHILS 2.8 BASOPHILS 0.9 VITAMIN B12/FOLATE, SERUM PA REY (7065) Reviewed date:02/04/2024 08:27:52 AM Interpretation: Performing Lab:CB, [employer] [id number] [employer] [place] FlbhSX[address] Vinh Dutta Notes/Report: NON-FASTING; NON-FASTING; NON-FASTING; NON-FASTING; NON-FAST FASTING:YES FASTING: YES VITAMIN B12 463 431-1324 pg/mL FOLATE, SERUM 23.1 Reference Range Low: <3.4 Borderline: 3.4-5.4 Normal: >5.4 VITAMIN D,25-OH,TOTAL,IA (17 306) Reviewed date:02/04/2024 08:27:52 AM Interpretation: Performing Lab:JULITO, [employer] Mediae1355 [facility] [place] VsndQE[address] Vinh Dutta Notes/Report: NON-FASTING; NON-FASTING; NON-FASTING; NON-FASTING; NON-FAST FASTING:YES FASTING: YES VITAMIN D,25-OH,TOTAL,IA 29 30-100 ng/mL Vitamin D Status 25-OH Vitamin D: Deficiency: <20 ng/mL Insufficiency: 20 - 29 ng/mL Optimal: > or = 30 ng/mL For 25-OH Vitamin D testing on patients on D2-supplementation and patients for whom quantitation of D2 and D3 fractions is required, the QuestAssureD(TM) 25-OH VIT D, (D2,D3), LC/MS/MS is recommended: order code 82188 (patients >2yrs). See Note 1 Note 1 For additional information, please refer to http://education.MVP Vault/faq/TVD652 (This link is being provided for informational/ educational purposes only.) Medications Medication SIG (Take, Route, Frequency, Duration) Notes Start Date End Date Status Vitamin C 500 MG 1 tab(s) orally once a day; Duration: 30 day(s) Active Biotin 1000 MCG 1 tab(s) orally once a day Active Vitamin D3 125 MCG 1 CAP(S) ORALLY twic e a day 1000 IU Active B-12 1000 MCG 1 tab(s) orally once a day Active Tylenol Extra Strength 500 MG 2 tab(s) orally every 6 hours prn Active Folic Acid 800 MCG 1 tab(s) orally once a day; Duration: 30 day(s) Active Theratears - 1 GTT IN EACH EYE ON CE A DAY AND PRN Active HYDROcodone-Acetaminophen 5-325 MG 1 tab(s) orally every 6 hours and at bedtie if needed; Duration: 30 days 11/09/2024 Active Immunizations Vaccine Route Administration Date Status Comme nts Adacel (Tdap) IM Intramuscular 06/04/2015 Administered Covid Moderna Unknown 05/15/2020 Administered Covid Moderna Unknown 06/14/2020 Administered Covid Moderna Unknown 01/21/2021 Administered Covid Moderna Unknown 07/01/2021 Administered Fluvirin (MEDICARE ONLY) IM Intramuscular 12/10/2015 Admin istered Fluvirin--Influenza vaccine 3+ year IM Intramuscular 12/26/2007 Administered Fluvirin--Influenza vaccine 3+ year IM Intramuscular 12/13/2009 Administered Fluvirin--Influenza vaccine 3+ year IM Intramuscular 12/21/2012 Administered Fluzone High Dose IM Intramuscular 11/30/2017 Administered Fluzone High Dose IM Intramuscular 12/21/2018 Administered Fluzone High Dose Unknown 11/21/2019 Administered Fluzone High Dose Unknown 11/21/2021 Administered Fluzone High Dose IM Intramuscular 11/01/2024 Administered Hep A Adult 2 Dose Unknown 09/09/2018 Administered Influenza (Fluzone)--Medicare only IM Intramuscular 12/24/2016 Administered Pneumovax-23 (pneumococccal vaccine polyvalent)2 years or older IM Intramuscular 12/21/2012 Administered Prevnar PCV-13 (Pneumococcal conjugate 13) IM Intramuscular 04/06/2014 Administered Prevnar PCV-20 (Pneumococcal conjugate 20) Unknown 08/11/2022 Administered RSV Unknown 12/16/2022 Administered SHINGRIX IM Intramuscular 10/10/2018 Administered SHINGRIX IM Intramuscular 12/21/2018 Administered Tetanus Toxoid IM Intramuscular 12/13/2009 Administered Problems Problem Type SNOMED Code ICD Code Onset Dates Problem Status W/U Status Risk Notes Problem Chronic pain (86303750) Other chronic pain (G89.29) Active confirmed Problem Pain co-occurrent and due to varicose veins of bilateral legs (58343027316106171) Varicose veins of bilateral lower extremities with pain (I83.813) Active confirmed Problem Localized, primary osteoarthritis of the hand (189543450) Primary osteoarthritis, right hand (M19.041) Active confirmed Problem Acquired spondylolisthesis (050221944) Spondylolisthesis, lumbar region (M43.16) Active confirmed Problem Pain in right foot (967571952200361) Pain in right foot (M79.671) Active confirmed Problem Vitamin D deficiency (24717075) Vitamin D deficiency (E55.9) Active confirmed Problem General examination of patient (148629709) Routine medical exam (Z00.00) Active confirmed Problem Gastroesophageal reflux disease (509118229) GERD without esophagitis (K21.9) Active confirmed Problem Essential hypertension (61939049) Hypertension, essential (I10) Active confirmed Problem Lymphedema (50533874) Lymphedema (I89.0) Active confirmed Problem Rupture of right rotator cuff (49067539404307908) Rotator cuff syndrome of right shoulder (M75.101) Active confirmed Problem Body mass index 30.00 to 34.99 (248755044263723) BMI 34.0-34.9,adult (Z68.34) Active confirmed Problem Obese class I (176720213446418) BMI 33.0-33.9,adult (Z68.33) Active confirmed Problem History of left knee replacement (5463921200972584) History of left knee replacement (Z96.652) Active confirmed Problem Pain in limb (77441031) Pain of left foot (M79.672) Active confirmed Problem Osteoarthritis of knee (615535082) Osteoarthritis of both knees, unspecified osteoarthritis type (M17.0) Active confirmed Problem Personal history of primary malignant neoplasm of breast (332288938) History of breast cancer (Z85.3) Active confirmed Problem Sacroiliitis (87733272) Sacroiliitis (M46.1) Active confirmed Problem Alopecia (75058953) Hair loss (L65.9) Active co nfirmed Problem Localized, primary osteoarthritis of the hand (014298747) Primary osteoarthritis of left hand (M19.042) Active confirmed Problem Carpal tunnel syndrome of left wrist (657432384226366) Carpal tunnel syndrome of left wrist (G56.02) Active confirmed Problem Adult health examination (939939954) Healthcare maintenance (Z00.00) Active confirmed Problem Osteopenia (disorder) (202982415) Osteopenia determined by x-ray (M85.80) Active confirmed Problem Osteopenia (792637353) Osteopenia of multiple sites (M85.89) Active confirmed Problem Localized, primary osteoarthritis of the shoulder region (919354342) Arthritis of right shoulder region (M19.011) Active confirmed Problem Macrocytosis (44329529) Macrocytosis (D75.89) Active confirmed Problem Thrombophlebitis (45892752) Thrombophlebitis (I80.9) Active confirmed Problem Aortic valve disorder (1487682) Systolic murmur of aorta (I35.8) Active confirmed Problem Low back pain (773294934) Low back pain, unspecified (M54.50) Active confirmed Problem Basal cell carcinoma (BCC) of skin of left upper extremity including shoulder (C44.619) Active confirmed Vital Signs Heart Rate 80 /min 11/01/2024 Temperature 97.7 degrees Fahrenheit 11/01/2024 Blood pressure diastolic 88 mm Hg 11/01/2024 Height 5 ft 6.75 in in 11/01/2024 Blood pressure systolic 134 mm Hg 11/01/2024 Weight 187 lbs 11/01/2024 BMI 29.5 kg/m2 11/01/2024 Encounters Encounter Location Date Provider Diagnosis [facility] BERT [address] [facility] [address] [place] [address] 06/24/2024 Provider Migration [facility] [address] [address] 12/02/2023 Terell Haynes Infection, nail, ingrowing L60.[address] [address] 02/01/2024 Terellrukhsana Haynes Hypertension, essential I10 ; Osteoarthritis of both knees, unspecified osteoarthritis type M17.0 ; Macrocytosis D75.89 ; Osteopenia determined by x-ray M85.80 ; Vitamin D deficiency E55.9 ; Spondylolisthesis, lumbar region M43.16 ; Other malaise R53.81 ; Other fatigue R53.83 and Melanocytic nevus of face, other location D22.39 [facility] [address] [place] [address] 04/27/2024 Terell Besson Lymphedema I89.0 and Chronic pain syndrome G89.4 [facility] BERT [address] [place] [address] 07/31/2024 Terell Besson Preop cardiovascular exam Z01.810 ; Hypertension, essential I10 ; Osteoarthritis of both knees, unspecified osteoarthritis type M17.0 and Routine medical exam Z00.00 [facility] BERT [address] [place] [address] 09/27/2024 Terell Osmanyson Lower extremity pain , left M79.605 [facility] BERT [address] [place] [address] 11/01/2024 Terell Osmanyson Osteopenia of multip le sites M85.89 ; Basal cell carcinoma (BCC) of skin of left upper extremity including shoulder C44.619 ; Venous stasis I87.8 ; Encounter for immunization Z23 ; Immunization(s) administered Z23 ; History of left knee replacement Z96.652 and Routine medical exam Z00.00 [facility] [place] [address] [place] [address] 12/22/2023 Terell Besson [facility] [place] [address] [place] [address] 01/26/2024 Terell Besson [facility] [address] [facility] [address] [place] [address] 02/08/2024 Terell Besson [facility] [place] [address] [place] [address] 02/28/2024 Terell Besson [facility] [place] [address] [place] [address] 03/30/2024 Terell Besson [facility] [address] [place] [address] 05/02/2024 Terell Besson [facility] [address] [place] [address] 06/05/2024 Terell Besson [facility] [address] [place] [address] 07/07/2024 Terell Besson [facility] [address] [place] [address] 08/08/2024 Terell Besson [facility] [address] [place] [address] 09/13/2024 Terell Besson [facility] [address] [place] [address] 10/12/2024 Terell Besson [facility] [place] [address] [place] [address] 11/01/2024 Terell Besson Visit for screening mammogram Z12.31 [facility] [address] [place], [place] [address] 11/02/2024 Terell Besson Visit for screening mammogram Z12.31 [facility] [place] [address] [place] [address] 11/09/2024 Terell Besson [facility] [address] [facility] [address] [place] [address] 11/13/2024 Terell Besson History of left knee replacement Z96.652 ; Left knee pain M25.562 and Pain in right shoulder M25.511 Assessments Encounter Date Diagnosis (ICD Code) Assessment Notes Treatment Notes Treatment Clinical Notes Section Notes 12/02/2023 Infection, nail, ingrowing (ICD-10 - L60.0) - 1.5 weeks R big toe redness, warmth. Denies stubbing toe or any other trauma - intermittent throbbing - on exam does appear to have ingrown nail that has gotten infected - patient without systemic symptoms PLAN - start cephalexin 500 mg TIDx10 days - follow up with podiatry 12/07/23 - encouraged epsom salt baths and can use vaseline 02/01/2024 Hypertension, essential (ICD-10 - I10) Good controll.... no changes in plan... check labs to anastacio multiple probs.. 02/01/2024 Osteoarthritis of both knees, unspecified osteoarthritis type (ICD-10 - M17.0) 04/27/2024 Chronic pain syndrome (ICD-10 - G89.4) Continue medication as prescribed. Return in 3 months. Patient has been compliant with our office and [place] regulations r.e. meds. No concerns on my part about diversion or misuse. Labs and Yuniel reports reviewed and are appropriate. 04/27/2024 Lymphedema (ICD-10 - I89.0) Improved greatly. Continue compression stockings. 07/31/2024 Hypertension, essential (ICD-10 - I10) Good blood pressure control, no changes in plan 07/31/2024 Preop cardiovascular exam (ICD-10 - Z01.810) Low risk from a cardiovascular perspective. Needs aggressive DVT prophylaxis and incentive spirometry to be sent home post surgery. Home health is already arranged through Ortho service. Discussed what medicines to stop before surgery. She is interested in starting fish oil, I told her to do this after surgery because of theoretical risk of thinning of blood. Otherwise I think she is at low and acceptable risk for the procedure. EKG with sinus rhythm today 09/27/2024 Lower extremity pain, left (ICD-10 - M79.605) DVT testing negative, good news. I think this is expected postoperative pain, perhaps she is ruptured Hay's cyst, will follow clinically, she feels better, we discussed wearing compression stockings. Continue PT 11/01/2024 Osteopenia of multiple sites (ICD-10 - M85.89) Did have osteopenia at last DEXA in 2020 with lowest T-score of -2.1 in R hip. Will plan for repeat today. Continue taking Vit-d and Calcium. WIll discuss result at next visit. 11/01/2024 Basal cell carcinoma (BCC) of skin of left upper extremity including shoulder (ICD-10 - C44.619) Continue following with dermatology 11/01/2024 Visit for screening mammogram (ICD-10 - Z12.31) 11/02/2024 Visit for screening mammogram (ICD-10 - Z12.31) 11/13/2024 History of left knee replacement (ICD-10 - Z96.652) 11/01/2024 Venous stasis (ICD-10 - I87.8) Bilateral [...] changed if it still bothers the patient. 11/13/2024 Left knee pain (ICD-10 - M25.562) 07/31/2024 Osteoarthritis of both knees, unspecified osteoarthritis type (ICD-10 - M17.0) Agree with surgery, patient is very mobile, doing well with pain medication. Will be renewed at the appropriate time. 02/01/2024 Macrocytosis (ICD-10 - D75.89) 07/31/2024 Routine medical exam (ICD-10 - Z00.00) Given patient''s advanced age is not a candidate for typical healthcare screening such as colonoscopy. No recent falls. Up-to-date with vaccinations. Nonsmoker. 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 3/3 word recall. No falls. Lifelong non-smoker. 02/01/2024 Osteopenia determined by x-ray (ICD-10 - M85.80) 11/01/2024 Encounter for immunization (ICD-10 - Z23) Will give quadrivalent flu shot today 11/13/2024 Pain in right shoulder (ICD-10 - M25.511) 11/01/2024 Immunization(s) administered (ICD-10 - Z23) 02/01/2024 Vitamin D deficiency (ICD-10 - E55.9) 02/01/2024 Spondylolisthesis, lumbar region (ICD-10 - M43.16) Patient has been compliant with our office and [place] regulations r.e. meds. No concerns on my part about diversion or misuse. Labs and Yuniel reports reviewed and are appropriate. Pain overall well controlled... 11/01/2024 History of left knee replacement (ICD-10 [...] DEXA ordered. No falls. is healthcare surrogate. 3/3 word recall at Medicare annual wellness visit. Not diabetic. 02/01/2024 Other malaise (ICD-10 - R53.81) 02/01/2024 Other fatigue (ICD-10 - R53.83) 02/01/2024 Melanocytic nevus of face, other location (ICD-10 - D22.39) Plan Of Treatment Pending Test Test Name Order Date Mammogram : Left breast 11/02/2024 DEXA Hip and Spine - Screening 6 EKG : In House 09/24/2008 Echocardiogram 08/05/2022 Physical Therapy 04/25/2009 Physical Therapy 08/18/2013 Physical Therapy 08/14/2015 N-PT with INR 12/26/2007 Mammogram : Bilateral 12/29/2019 Mammogram : Bilateral 11/01/2024 Occupational Therapy : Eval & Treatment 10/31/2019 Occupational Therapy : Eval & Treatment 06/24/2009 Occupational Therapy : Eval & Treatment 11/13/2024 H-VITAMIN B12 01/01/2017 C-EOSIOPHIS COUNT 12/28/2011 FOLATE 12/28/2011 CBC With Differential/Platelet 2 DEXA Hip and Spine - Diagnostic 11/02/19 25 Vitamin B12 12/28/2011 Physical Therapy : Lymphedema 04/29/2020 M-Complete Blood Count Auto Diff 020 M-Comprehensive Metabolic Panel 01/11/20 M-Lipid Panel 01/11/2020 M-Vitamin D 25 Hydroxy 01/11/2020 Vitamin B12 with Reflex to Methylmalonic Acid (MMA) 04/27/2022 Vitamin D 25-Hydroxy 04/27/2022 Physical Therapy Eval and Treat 11/14/19 25 Future Test Test Name Order Date H-PT/INR 12/21/2007 M-Vitamin B12 09/19/2020 M-Vitamin D 25 Hydroxy 09/19/2020 Next Appt Details Provider Name:Terell Haynes, 01/31/2025 10:30:00 AM, [address], [place], [address], Insurance Providers Payer Name Payer Address Payer Phone Subscriber Number Group Number Insured Name Patient Relationship to Insured Coverage Start Date Coverage End Date [employer] MED[employer]ARE [address] [address] [place] [address] [id number] Allyssa Vaughn Self - patient is the insured Medications Administered Medication Instructions Date of Administration Dosage Notes Kenalog 40mg 09/28/2016 40 mg Triamcinolone Acetonide 40mg Injection 03/23/2018 1 mL Medical (General) History Medical History History ICD Code ovarian mass, s/p MARCELA/BSO 05/27 DVT 1998 , 2007 PE 1977 Breast CA , s/p R mastectomy superficial thrombophlebitis miscarriage in 7th month tubal blood transfusion frac left distal fibula Arthritis - on Opiate tx... 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
--- OUTSIDE RECORDS SUMMARY | 2024-11-27 13:47 | XMS_ITS | Encounter Summary ---
Author Organization Healthcare Address [address] 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 Name Role Phone Terell Haynes MD Primary Care Provider [phone] Reason for Referral * Consultation (Routine) - Closed Specialty Diagnoses / Procedures Referred By Contac t Referred To Contact Plastic Surgery Diagnoses Saline leakage from breast implant, initial encounter Terell Haynes MD [address] [address] Phone: tel: fax: Referral ID Status Reason Start Date Expiration Date V isits Requested Visits Authorized [id number] Closed Specialty Services Required 02/26/2023 08/27/2024 1 1 Encounter Details Date Type Department Care Team (Late st Contact Info) Description 02/26/2023 Community [facility] [address] [place] [address] Terell Haynes MD [address] [place] [address] Saline leakage from breast implant, initial encounter (Primary Dx) Social History Tobacco Use Types Packs/Day Years Used Date Smoking Tobacco: Never Assessed Comments Unknown Sex and Gender Information Value Date Recorded Sex Assigned at Not on file Legal Sex Female 6:11 PM EDT Gender Identity Not on file Sexual Orientation Not on file documented as of this encounter Plan of Treatment Scheduled Referrals Name Type Priority Associated Diagnoses Order Schedule Ambulatory Referral to Plastic Surgery Outpatient Referral Routine Saline leakage from breast implant, initial encounter Ordered: 02/26/2023 documented as of this encounter Visit Diagnoses Diagnosis Saline leakage from breast implant, initial encounter- Primary documented in this encounter Care Teams Locomotive Crane Engineer Relationship Specialty Start Date End Date Terell Haynes MD [address] [place] [address] PCP - General Internal Medicine 07/08/23 documented as of this encounter
--- OUTSIDE RECORDS SUMMARY | 2024-11-27 13:47 | XMS_ITS | Clinical Summary ---
Author Organization Healthcare Address [address] [place] [address] Care Team Providers Care Digital Color Press Operator Name Role Phone Terell Haynes MD Primary Care Provider + [phone] Allergies Active Allergy Reactions Criticality Noted Date Comments Codeine Other - please docum ent in the comment field Low 12/23/2021 Lidocaine Other - please docum ent in the comment field Low 12/23/2021 Meloxicam Other - please docum ent in the comment field Low 12/23/2021 Naproxen Other - please docum ent in the comment field Low 12/23/2021 Wound Dressing Adhesive Other - please d ocument in the comment field Low 12/23/2021 Medications HYDROcodone-acet aminophen ([place]) 5-325 MG tablet 1 tab(s) orally every 6 hours prn for 30 days 05/19/2023 Active Active Problems Problem Noted Date Diagnosed Date Device, implant, or graft complication Social History Tobacco Use Types Packs/Day Years Used Date Smoking Tobacco: Never Smokeless Tobacco: Never Tobacco Cessation:Counseling Given: Not Answered Alcohol Use Standard Drinks/Week Comments Never 0 (1 standard drink = 0.6 oz pur e alcohol) Comments Unknown Sex and Gender Information Value Date Recorded Sex Assigned at Not on file Legal Sex Female 6:11 PM EDT Gender Identity Not on file Sexual Orientation Not on file Last Filed Vital Signs Vital Sign Reading Time Taken Comments Blood Pressure 144/90 07/08/2023 1:59 PM EDT Pulse 97 07/08/2023 1:59 PM EDT Temperature - - Respiratory Rate - - Oxygen Saturation 96% 07/08/2023 1:59 PM EDT Inhaled Oxygen Concentration - - Weight 97.1 kg (214 lb) 07/08/2023 1:59 PM EDT Height 171.5 cm (5' 7.5 ) 07/08/2023 1:59 PM EDT Body Mass Index 33.02 07/08/2023 1:59 PM EDT Plan of Treatment Health Maintenance Due Date Last Done Comments [facility]-Bone Density Scan 1945 [facility]-Depression Screening 1945 [facility]-Hepatitis C Screening 1945 [facility]-Medicare Annual Wellness (AWV) 1945 [facility]-/Child/Adol SDOH Screenings 1945 [facility]- SDOH Screenings 08/31/1963 [facility]-Adult SDOH Screenings 08/31/1963 [facility]-DTaP,Tdap,and Td Vaccines (1 - Tdap) 1964 [facility]-Pneumococcal Vaccine: 50+ Years (1 of 1 - PCV) 08/31/1995 [id number] Vaccine ( season) 2024 02/03/2023, 12/17/2021, 07/01/2021, Additional history exists [facility]-Influenza Vaccine (#1) 11/20/202411/18, 11/21/2020, 11/21/2019, Additional history exists [facility]-Hepatitis A Vaccines Aged Out 09/09/2018, 1111/2017 No longer eligible based on patient's age to complete this topic [facility]-Zoster Vaccines Completed 12/21/2018, 9 [facility]-RSV Vaccine: 60+ Years or Completed 12/16/2022 [facility]-Obesity Intervention Completed 07/08/2023 HPV Vaccines Aged Out No longer eligi ble based on patient's age to complete this topic [facility]-HIB Vaccines Aged Out No longer e ligible based on patient's age to complete this topic [facility]-IPV Vaccines Aged Out No longer e ligible based on patient's age to complete this topic [facility]-Rotavirus Vaccines Aged Out No lo nger eligible based on patient's age to complete this topic Insurance [facility] MEDICARE Care Teams Digital Color Press Operator Relationship Specialty Start Date End Date Terell Haynes MD [address] [place] [address] PCP - General Internal Medicine 07/08/23
== END 2024-11-27 23:59 | disposition home or self-care (01) ==
LOC: RAD 13:45
PROVIDERS: PCP Internal Medicine Adolescent Medicine; Visit Provider Internal Medicine Adolescent Medicine
DX: Z12.31 Encounter for screening mammogram for malignant neoplasm of breast (principal); R92.322 Mammographic fibroglandular density, left breast
CPT/HCPCS: 77063; 77067

== ENCOUNTER 2024-12-05 12:43 | Outpatient (RCR) | payer MEDICARE, SELFPAY ==
--- NOTE | 2024-12-05 15:45 | HMH.PTOPEV ---
PT Evaluation Rehab PT Outpatient Evaluation Start: 12/05/24 13:05 Freq: Status: Active Protocol: Document 12/05/24 13:05 ANDRES (Rec: 12/05/24 15:45 ANDRES [id number]) E-signed By Jane Krueger, PT Outpatient Therapy Subjective History Subjective History Pt is a 79 y/o female who reports to PT for L knee pain with history of L knee replacement performed on 08/25/24 . Pt reports she did have HHPT following her surgery for ~1 month, denies participating in outpatient PT. Pt reports continued pain, hypersensitivity and swelling of the LLE. Pt states she had a Hay's cyst that burst with surgery increasing her swelling and leading to discoloration of the L leg. Pt reports continued L knee pain that is aggravated by prolonged standing, prolonged walking, walking on uneven ground and stair climbing. Pt states she does use a walking stick with long distance ambulation and on uneven ground otherwise denies use of an AD. Pt denies falls. Pt reports main complaint of difficulty getting up and down from a chair without use of her arms which was also a problem prior to surgery. Pt also reports she has to use her arms to help lift her left leg into her vehicle. Pt states the left leg also feels unstable at times. Pt states she did have an xray of her knee recently at her surgeons office without significant findings. Pt reports increased sensitivity of the LLE after bakers cyst burst. Pt denies further comorbidities to report. New diagnosis of Yes: basal cell carcinoma removed 10 days ago cancer in past 12 months? Chief Complaint Pain,Stiff,Swelling,Weakness Symptom Type Ache,Dull Symptoms Relieved By Rest/Positioning,Ice,Elevation Symptoms Aggravated Standing,Physical Activity,Twisting,Walking By Current Functional Sleeping,Standing,Squatting,Walking,Stairs,Balance Limitations Symptom Description Intermittent Level of pain today 1 (0-10) Pain scale - at its 0 best (0-10) Pain scale - at its 10 worst (0-10) Hip/Knee Eval Gait Observation General Gait Pattern Antalgic Gait Observation Assistive Device Assistive Devices None / NA Palpation Tenderness left Knee Palpation 2/4 TTP of medial joint, quad, hamstring and calf mm Overall Comment MMT Hip Flexion Strength 4- Good- Grade Hip Abduction 4- Good- Strength Grade Hip Adduction 4- Good- Strength Grade Hip Extension 4- Good- Strength Grade Knee Extension 4- Good- Strength Grade Knee Flexion 4- Good- Strength Grade ROM Knee Extension 8 Active Range of Motion (degrees) Knee Flexion Active 112 Range of Motion ( degrees) Effusion joint effusion knee left exam standard Mid - Patellar 49 Circumerential Measure (cm) 5cm Proximal 53.5 Circumference Measure (cm) 5cm Distal 42.5 Circumference Measure (cm) Lower Extremity Functional Index Activities Today, do you or would you have any difficulty at all with: a.Any of your usual A little bit of difficulty work, housework or school activities b. Your usual Moderate difficulty hobbies, recreational or sporting activities c. Getting into or No difficulty out of the bath d. Walking between A little bit of difficulty rooms e. Putting on your A little bit of difficulty shoes or socks f. Squatting Extreme difficulty or unable to perform activity g. Lifting an object No difficulty , like a bag of groceries from the floor h. Performing light A little bit of difficulty activities around your home i. Performing heavy A little bit of difficulty activities around your home j. Getting into or Quite a bit of difficulty out of a car k. Walking 2 blocks Moderate difficulty l. Walking a mile Moderate difficulty m. Going up or down Extreme difficulty or unable to perform activity 10 stairs (about 1 flight of stairs) n. Standing for 1 A little bit of difficulty hour o. Sitting for 1 No difficulty hour p. Running on even Extreme difficulty or unable to perform activity ground q. Running on uneven Extreme difficulty or unable to perform activity ground r. Making sharp Extreme difficulty or unable to perform activity turns while running fast s. Hopping Extreme difficulty or unable to perform activity t. Rolling over in Moderate difficulty bed LEFI Score Lower Extremity 39 Functional Index Score Miscellaneous Dx PT Eval Objective Objective 5x sit to stand: 31 with BUE support Outpatient Therapy Assessment Impairments Problems/ Palpation Tenderness,Impaired Range of Motion,Impaired Impairmments Strength,Impaired Gait Pattern,Impaired Walking, Impaired Standing,Subjective C/O Pain,Impaired Self Care/Self Management Prognosis Rehab Potential Good Comment Barriers to progress include pt only able to attend PT 1x/week due to financial concern Clinical Impression Consistent with Yes Diagnosis PT Patient Goals PT Patient Goals PT Short Term 3 weeks: Patient Goals 1. Verbalize compliance with HEP to assist with progress. 2. Improve pain at worst to 8/10 to improve overall QOL /function. 3. Improve LEFS score to 49/80 to improve overall QOL/ function. 4. Improve L knee AROM extension to 0 to assist with gait mechanics. 5. Demonstrate ability to perform sit to stand transfer without BUE support. PT Intermediate Patient 6 weeks: Goals 1. Improve L knee AROM to 0-115 to assist with gait and mobility. 2. Improve LLE MMT to 4-4+/5 grossly to assist with function. 3. Improve pain at worst to 6/10 to improve overall QOL . 4. Improve LLE edema from baseline to assist with pain and mobility. 5. Improve LEFS score to 55/80 to improve overall QOL/ function. 6. Improve 5x sit to stand score to 15 or less to decrease fall risk. Outpatient Therapy Plan of Care Treatment Plan May Include Therapeutic Exercise Yes Including Home Exercise Program Manual Therapy Yes Techniques Neuromuscular Re- Yes education Therapeutic Yes Activities to Return to Previous Functional/Work Level Gait Training Yes ADL/Self Care Yes Education Dry Needling Yes Thermal Modalities Yes Electrical Yes Stimulation Ultrasound/ Yes Phonophoresis Iontophoresis Yes Orthotics/Bracing/ Yes Splinting Vasopneumatic Yes Compression Pump Massage Yes Manual Lymphatic Yes Drainage Group Therapy for Yes Medicare Eval/Re-Eval Yes Frequency Times per week 2 Duration Number of Weeks 4-6 Addendums This patient is a No candidate for social or vocational rehab ? Patient/Guardian Yes verbally acknowledges understanding of treatment program and consents to further treatment? Patient/Guardian Yes verbally acknowledges understanding of diagnosis, prognosis and goals for treatment? Eval Complexity PT Charges 35826 - Low Complexity Shoulder/Elbow Eval Shoulder Objective Measurements Elbow Objective Measurements PHYSICIAN CERTIFICATION: I certify the specified therapy services for Allyssa Vaughn are required, authorized, and reviewed every 30 days.
== END 2024-12-05 23:59 | disposition home or self-care (01) ==
LOC: PT 12:43
PROVIDERS: Visit Provider Internal Medicine Adolescent Medicine
DX: M25.562 Pain in left knee (principal); Z96.652 Presence of left artificial knee joint
CPT/HCPCS: 97161